=== PATIENT | male | born 1940 | race Caucasian/White ===

== ENCOUNTER 2021-11-06 09:38 | Inpatient (IN) | payer MEDICARE ==
[2021-11-06] MEDS ORDERED: Ondansetron PF 4 MG/2 ML Vial IVP PRN (10:48)
[2021-11-06] MEDS ORDERED: Acetaminophen 325 MG TAB PO PRN (10:48)
[2021-11-06] MEDS ORDERED: Acetaminophen 650 MG Suppository PR PRN (10:48)
[2021-11-06] MEDS ORDERED: Ondansetron ODT 4 MG TAB PO PRN (10:48)
[2021-11-06] MEDS ORDERED: Aspirin 325 MG TAB PO SCH (11:00)
[2021-11-06] MEDS ORDERED: cefTRIAXone\\ROCEPHIN 1 GM in Sodium Chloride 0.9% 100 ML IVPB SCH ×2 (11:30→13:15)
[2021-11-06 11:35] VITALS: BMI 28.5
[2021-11-06] MEDS ORDERED: Azithromycin 500 MG in Sodium Chloride 0.9% 250 ML 250 ML IVPB SCH (12:00)
[2021-11-06 12:06] LABS: CKMB 1.4 ng/mL (0-6.6)
[2021-11-06 15:32] LABS: CKMB 1.9 ng/mL (0-6.6)
[2021-11-06 15:34] LABS: Legionella Urinary Ag Negative (Negative); Strep pneumo Urine Ag NEGATIVE (NEGATIVE)
[2021-11-06] MEDS ORDERED: Furosemide 20 MG/2 ML VIAL SLOW IVP SCH (20:00)
[2021-11-06] MEDS ORDERED: Heparin 5,000 UNITS/ML VIAL SC SCH (21:00)
[2021-11-06 21:16] LABS: CKMB 2.2 ng/mL (0-6.6)
[2021-11-06] MEDS ORDERED: Carvedilol 25 MG TAB PO SCH (21:45)
[2021-11-06] MEDS ORDERED: Atorvastatin Calcium 10 MG TAB PO SCH (22:00)
[2021-11-07 00:39] LABS: INR-International Normal Ratio 1.1; PTT 32.3 sec (22.0-33.0); Prothrombin Time 11.9 sec (9.5-12.1)
[2021-11-07] MEDS: Enoxaparin Sodium 80 MG/0.8 ML SYRINGE SC SCH ×2 (01:30→12:09)
[2021-11-07 04:19] LABS: #Basophils 0.1 10x3/uL (0.0-0.2); #Eosinphils 0.1 10x3/uL (0.0-0.5); #Monocytes 0.7 10x3/uL (0.0-1.1); %Basophils 1.3 % (0.0-2.0); %Eosinophils 2.5 % (0.0-6.0); %Lymphocytes 19.3 % (18.0-47.0); %Monocytes 14.3 % (0.0-10.0); %Neutrophils 62.4 % (40.0-75.0); Hemoglobin 10.3 g/dL (13.5-17.5); Mean Corpuscular HGB CONC 32.5 g/dL (32.0-36.0); Mean Corpuscular Hemoglobin 32.5 pg (27.0-33.0); Mean Platelet Volume 9.4 fl (7.4-10.4); Platelet Count 220 10x3/uL (150-450); RBC Distribution Width 12.6 % (11.5-14.5); Red Blood Cell (RBC) Count 3.17 10x6/uL (4.32-5.72); White Blood Cell (WBC) Count 4.8 10x3/uL (3.5-10.5)
[2021-11-07 04:31] LABS: Anion Gap 13 mmol/L (10-20); BUN (Urea Nitrogen) 11 mg/dL (8.4-25.7); Calc. Creatinine Clearance 70 mL/min (70-130); Calcium 9.1 mg/dL (7.8-10.44); Carbon Dioxide 27 mmol/L (23-31); Chloride 99 mmol/L (98-107); Glucose 103 mg/dL (83-110); Potassium 4.1 mmol/L (3.5-5.1); Sodium 135 mmol/L (136-145)
[2021-11-07] MEDS: cefTRIAXone\\ROCEPHIN 1 GM in Sodium Chloride 0.9% 100 ML IVPB SCH (08:20)
[2021-11-07] MEDS ORDERED: Senokot S 8.6-50 MG TAB PO PRN (08:24)
[2021-11-07] MEDS ORDERED: Polyethylene Glycol 3350 17 GM Packet PO PRN (08:24)
[2021-11-07] MEDS ORDERED: hydrALAZINE 20 MG/ML VIAL SLOW IVP PRN (08:26)
[2021-11-07] MEDS ORDERED: Enoxaparin Sodium 80 MG/0.8 ML SYRINGE SC SCH (09:00)
[2021-11-07] MEDS: Thiamine 100 MG TAB PO SCH (10:07)
[2021-11-07] MEDS: Carvedilol 25 MG TAB PO SCH ×2 (10:07→20:09)
[2021-11-07] MEDS: Magnesium Oxide 400 MG TAB PO SCH (10:07)
[2021-11-07] MEDS: Azithromycin 500 MG in Sodium Chloride 0.9% 250 ML 250 ML IVPB SCH (10:08)
[2021-11-07] MEDS ORDERED: Triamcinolone 0.1% Cream 15 GM TUBE TOP PRN (16:28)
[2021-11-07] MEDS ORDERED: Communication Order-Pharmacy FS SCH (17:45)
[2021-11-07] MEDS: Atorvastatin Calcium 10 MG TAB PO SCH (20:09)
[2021-11-07] MEDS: Aspirin Chewable 81 MG TAB PO SCH (20:10)
[2021-11-07] MEDS ORDERED: Atorvastatin Calcium 10 MG TAB PO SCH (21:00)
[2021-11-08 04:39] LABS: Hemoglobin 10.3 g/dL (13.5-17.5); Mean Corpuscular HGB CONC 31.7 g/dL (32.0-36.0); Mean Corpuscular Hemoglobin 32.5 pg (27.0-33.0); Mean Corpuscular Volume 102.5 fl (81.2-95.1); Mean Platelet Volume 9.4 fl (7.4-10.4); Platelet Count 217 10x3/uL (150-450); RBC Distribution Width 12.8 % (11.5-14.5); Red Blood Cell (RBC) Count 3.17 10x6/uL (4.32-5.72); White Blood Cell (WBC) Count 4.6 10x3/uL (3.5-10.5)
[2021-11-08 04:51] LABS: Anion Gap 12 mmol/L (10-20); BUN (Urea Nitrogen) 14 mg/dL (8.4-25.7); Calc. Creatinine Clearance 71 mL/min (70-130); Calcium 8.8 mg/dL (7.8-10.44); Carbon Dioxide 28 mmol/L (23-31); Chloride 101 mmol/L (98-107); Glucose 78 mg/dL (83-110); Potassium 4.2 mmol/L (3.5-5.1); Sodium 137 mmol/L (136-145)
[2021-11-08 05:18] LABS: MDiff Complete? YES
[2021-11-08 05:21] LABS: Band 3 % (5-11); Eosinophils 5 % (0-10); Lymphocytes 28 % (21-51); Monocytes 12 % (0-10); Neutrophil 50 % (42-75); Nucleated RBC 1 % (0); Reactive Lymphocytes 1 % (0-10)
[2021-11-08 05:22] LABS: Platelet Morphology Comment Appears Adequate; RBC Morphology Normal
[2021-11-08] MEDS: Carvedilol 25 MG TAB PO SCH ×2 (05:51→20:59)
[2021-11-08] MEDS: Magnesium Oxide 400 MG TAB PO SCH (05:57)
[2021-11-08] MEDS: Thiamine 100 MG TAB PO SCH (05:57)
[2021-11-08] MEDS: cefTRIAXone\\ROCEPHIN 1 GM in Sodium Chloride 0.9% 100 ML IVPB SCH (07:53)
[2021-11-08] MEDS: Azithromycin 500 MG in Sodium Chloride 0.9% 250 ML 250 ML IVPB SCH (09:03)
[2021-11-08] MEDS ORDERED: Lidocaine 1% PF 5 ML VIAL ONE (12:40)
[2021-11-08] MEDS ORDERED: Fentanyl 100 MCG/2 ML VIAL ONE (12:40)
[2021-11-08] MEDS ORDERED: Adenosine 6 MG/2 ML VIAL ONE (12:40)
[2021-11-08] MEDS ORDERED: Nitroglycerin 50 MG/250 ML BOT 0 ML ONE (12:40)
[2021-11-08] MEDS ORDERED: Midazolam HCl 2 mg/2 ml Vial ONE (12:41)
[2021-11-08] MEDS ORDERED: Heparin 10,000 UNITS/ 10 ML VIAL ONE (12:41)
[2021-11-08] MEDS ORDERED: TICAGRELOR 90 MG TABLET ONE (13:24)
[2021-11-08] MEDS ORDERED: Protamine Sulfate 50 MG/5 ML VIAL ONE (13:53)
[2021-11-08] MEDS: Sodium Chloride 0.9% 1,000 ML IV SCH (14:00)
[2021-11-08] MEDS: Aspirin Chewable 81 MG TAB PO SCH (20:59)
[2021-11-08] MEDS: Atorvastatin Calcium 10 MG TAB PO SCH (20:59)
[2021-11-08] MEDS: TICAGRELOR 90 MG TABLET PO SCH (20:59)
[2021-11-09] MEDS: Sodium Chloride 0.9% 1,000 ML IV SCH ×2 (02:46→09:08)
[2021-11-09 05:10] LABS: #Basophils 0.1 10x3/uL (0.0-0.2); #Eosinphils 0.5 10x3/uL (0.0-0.5); #Monocytes 0.7 10x3/uL (0.0-1.1); %Eosinophils 7.6 % (0.0-6.0); %Lymphocytes 14.4 % (18.0-47.0); %Monocytes 10.9 % (0.0-10.0); %Neutrophils 65.6 % (40.0-75.0); Mean Corpuscular HGB CONC 31.9 g/dL (32.0-36.0); Mean Corpuscular Hemoglobin 32.4 pg (27.0-33.0); Mean Corpuscular Volume 101.3 fl (81.2-95.1); Mean Platelet Volume 9.2 fl (7.4-10.4); Platelet Count 231 10x3/uL (150-450); RBC Distribution Width 12.7 % (11.5-14.5); Red Blood Cell (RBC) Count 3.09 10x6/uL (4.32-5.72); White Blood Cell (WBC) Count 6.2 10x3/uL (3.5-10.5)
[2021-11-09 05:25] LABS: Anion Gap 12 mmol/L (10-20); BUN (Urea Nitrogen) 14 mg/dL (8.4-25.7); Bilirubin, Total 0.5 mg/dL (0.2-1.2); Calc. Creatinine Clearance 79 mL/min (70-130); Calcium 8.9 mg/dL (7.8-10.44); Carbon Dioxide 27 mmol/L (23-31); Chloride 102 mmol/L (98-107); Glucose 89 mg/dL (83-110); Potassium 4.2 mmol/L (3.5-5.1); Protein, Total 5.9 g/dL (5.8-8.1); Sodium 137 mmol/L (136-145)
[2021-11-09 05:26] LABS: ALT (SGPT) 14 U/L (8-55); AST (SGOT) 26 U/L (5-34); Albumin 2.9 g/dL (3.4-4.8); Alkaline Phosphatase 80 U/L (40-110)
[2021-11-09] MEDS: Magnesium Oxide 400 MG TAB PO SCH (09:06)
[2021-11-09] MEDS: Thiamine 100 MG TAB PO SCH (09:06)
[2021-11-09] MEDS: TICAGRELOR 90 MG TABLET PO SCH (09:07)
[2021-11-09] MEDS: Carvedilol 25 MG TAB PO SCH (09:07)
[2021-11-09 12:25] VITALS: TEMP 98.2
[2021-11-09 14:41] VITALS: BP 105/57
== END 2021-11-09 16:30 | disposition home or self-care (01) | DRG 853 ==
LOC: CSHTELE 09:38 → UNDOADMIN 09:38
PROVIDERS: ADMIT Internal Medicine; ATTEND Internal Medicine
PROC: 027034Z Dilation of Coronary Artery, One Artery with Drug-eluting Intraluminal Device, Percutaneous Approach (ICD-10-PCS; principal; 2021-11-06)
PROC: 4A023N7 Measurement of Cardiac Sampling and Pressure, Left Heart, Percutaneous Approach (ICD-10-PCS; 2021-11-06)
PROC: B216YZZ Fluoroscopy of Right and Left Heart using Other Contrast (ICD-10-PCS; 2021-11-06)
DX: A41.9 Sepsis, unspecified organism (principal); I21.4 Non-ST elevation (NSTEMI) myocardial infarction; J18.9 Pneumonia, unspecified organism; J96.01 Acute respiratory failure with hypoxia; I42.9 Cardiomyopathy, unspecified; I10 Essential (primary) hypertension; E78.5 Hyperlipidemia, unspecified; M19.90 Unspecified osteoarthritis, unspecified site; I73.9 Peripheral vascular disease, unspecified; Z96.639 Presence of unspecified artificial wrist joint; Z20.822 Contact with and (suspected) exposure to COVID-19; I48.0 Paroxysmal atrial fibrillation; I49.5 Sick sinus syndrome; I87.2 Venous insufficiency (chronic) (peripheral); Z86.16 Personal history of COVID-19; Z79.899 Other long term (current) drug therapy; Z79.82 Long term (current) use of aspirin; Z95.818 Presence of other cardiac implants and grafts; Z95.820 Peripheral vascular angioplasty status with implants and grafts
CPT/HCPCS: 36415; 71275; 80048; 80053; 82553; 84145; 85025; 85347; 85610; 85730; 87449; 87633; 87899; 92928; 92978; 92979; 93005; 93010; 93306; 93458; 94760; 97139; 99152; 99153; C1753; C1760; C1776; C1874; C1887; C9600; J0153; J0360; J0456; J0696; J1644; J1650; J1940; J2250; J2720; J3010; J3490; J7050